=== PATIENT | female | born 1945 | race Caucasian/White ===

== ENCOUNTER → 2017-07-30 | Outpatient (CLI) | payer OTHER ==
[~2017-07-30] VITALS: Ht 162.6 cm; Wt 67.0 kg
[~2017-07-30] MED LIST: ASPIR-LOW81 MG PO; ATARAX,VISTARIL25 MG PO; Aspirin E.C. PO; BENADRYL50 MG PO; CALCIUM500 M4 PO; CINNAMON500 MG PO; ESCITALOPRAM OX10 MG PO; FISH OIL + D31 EACH PO; FISH OIL 1,2001 EAC4 PO; GLUCOPHAGE500 MG PO; IBUPROFEN800 MG PO; LISINOPRIL5 MG PO; Lopressor PO; MELOXICAM7.5 MG PO; METAMUCIL PACK3.4 GM PO; METAXALL800 MG PO; METFORMIN HCL850 MG PO; METOPROLOL TART25 MG PO; NEURONTIN300 MG PO; PREDNISONE10 M1 PO; TRAMADOL HCL50 MG PO; VITAMIN D PO; VITAMIN D31000 UNIT PO; VITAMIN E1000 UNI1 PO; ZANTAC150 MG PO; ZYRTEC5 MG PO; Zestril,Prinivil PO
[2017-07-30 07:25] VITALS: BP 166/77
== END | disposition home or self-care (01) ==
LOC: IVINF 06:56
PROVIDERS: Internal Medicine
DX: R79.89 Other specified abnormal findings of blood chemistry (principal)
CPT/HCPCS: 80400; 82024 90; 82533 91; 96374; J0834